=== PATIENT | female | born 1990 | race American Indian/Alaskan Native ===

== ENCOUNTER 2016-06-29 15:17 | Outpatient (CLI) | payer MEDICAID ==
[2016-06-29] MEDS ORDERED: LACTATED RINGERS 500 ML IV ONE (16:04)
[2016-06-29] MEDS ORDERED: LACTATED RINGERS 1,000 ML ONE ×2 (16:27→17:25)
[2016-06-29] MEDS ORDERED: ROCEPHIN/NS 1 GM/50 ML 1 GM/50 ML BAG IV ONE (17:22)
[2016-06-29 17:40] LABS: Bilirubin,Urine NEG (Negative); Blood,Urine NEG (Negative); Ketones,Urine TR mg/dL (Negative); Leukocyte Esterase,Urine TR (Negative); Mucus,Urine 3+ /HPF; Nitrite,Urine NEG (Negative); Protein,Urine <15 mg/dL mg/dL (Negative)
[2016-06-29 18:44] VITALS: BP 94/53
== END 2016-06-29 19:15 | disposition home or self-care (01) ==
LOC: TRG 15:17
PROVIDERS: ATTEND Obstetrics & Gynecology
DX: O47.03 False labor before 37 completed weeks of gestation, third trimester (principal); Z3A.29 29 weeks gestation of pregnancy
CPT/HCPCS: 59025; 81001; 96360; 96365; J0696; J7120

== ENCOUNTER 2016-08-03 13:22 | Outpatient (CLI) | payer MEDICAID ==
[2016-08-03 13:57] VITALS: BP 91/51
[2016-08-03] MEDS ORDERED: LACTATED RINGERS 500 ML IV ONE (13:58)
[2016-08-03 14:32] LABS: Bilirubin,Urine NEG (Negative); Blood,Urine NEG (Negative); Ketones,Urine NEG (Negative); Leukocyte Esterase,Urine NEG (Negative); Mucus,Urine FEW /HPF; Nitrite,Urine NEG (Negative); Protein,Urine <15 mg/dL mg/dL (Negative)
--- NOTE | 2016-08-04 10:26 | Ultrasound Report ---
BIOPHYSICAL PROFILE: 2 - breathing movements 2 - movements 2 - posture and tone 2 - Qualitative amniotic fluid volume A - TOTAL SCORE OF POSSIBLE 8 Heart Rate (bpm) 152 Gestation: Single Position: Breech Amniotic Fluid: SANDRA = 9.8 cm Heart Rate: 145 BPM Average gestational age 33 weeks.
== END 2016-08-03 15:20 | disposition home or self-care (01) ==
LOC: TRG 13:22
PROVIDERS: ATTEND Obstetrics & Gynecology
DX: O32.1XX0 Maternal care for breech presentation, not applicable or unspecified (principal); Z3A.33 33 weeks gestation of pregnancy
CPT/HCPCS: 76815; 76819; 81001; J7120

== ENCOUNTER 2016-08-24 20:16 | Outpatient (CLI) | payer MEDICAID ==
[2016-08-24 20:42] VITALS: BP 97/54
[2016-08-24] MEDS ORDERED: LACTATED RINGERS 500 ML IV ONE (21:53)
== END 2016-08-24 23:50 | disposition home or self-care (01) ==
LOC: TRG 20:16
PROVIDERS: ATTEND Obstetrics & Gynecology
DX: O47.03 False labor before 37 completed weeks of gestation, third trimester (principal); Z3A.36 36 weeks gestation of pregnancy
CPT/HCPCS: 59025

== ENCOUNTER 2016-08-26 05:41 | Inpatient (IN) | payer MEDICAID ==
[2016-08-26] MEDS ORDERED: LACTATED RINGERS 500 ML IV ONE (05:57)
[2016-08-26] MEDS ORDERED: LACTATED RINGERS 1,000 ML ONE ×2 (06:03→07:40)
[2016-08-26] MEDS ORDERED: XYLOCAINE 2% INFILTRATI ONE (10:21)
[2016-08-26] MEDS ORDERED: ePHEDrine SULFATE IV PRN ×2 (10:21→10:56)
[2016-08-26] MEDS ORDERED: BRETHINE SUB-Q PRN (10:21)
[2016-08-26] MEDS ORDERED: SUBLIMAZE IV PRN (10:21)
[2016-08-26] MEDS ORDERED: BRETHINE IVP PRN (10:21)
[2016-08-26] MEDS ORDERED: MINERAL OIL PO PRN (10:21)
[2016-08-26 10:45] LABS: Hematocrit 26.7 % (30.3-42.9); Hemoglobin 8.5 gm/dl (10.1-14.3); Mean Corpuscular HGB Conc 32 % (30-34); Mean Corpuscular Volume 75 fl (79-97); Platelet Count 245 K/mm3 (140-440); Red Blood Count 3.55 M/mm3 (3.65-5.03); Red Cell Distribution Width 16.1 % (13.2-15.2); White Blood Count 12.3 K/mm3 (4.5-11.0)
[2016-08-26 10:53] LABS: Mean Corpuscular Hemoglobin 24 pg (28-32)
--- NOTE | 2016-08-26 10:54 | History and Physical Report ---
History of Present Illness Date of examination: 08/26/16 Date of admission: 08/26/16 05:42 Chief complaint: C/O contractions this am History of present illness: now 36. 2 weeks presents to labor and delivery with c/o of contractions and hx of IUGR being followed by [facility]. BPP 10/11 today with equivocal NST. care at [facility] since 7 weeks gestation. HX of for IUGR and NRFHR in 2013.Baby had trisomy 18 at one year of life. First vaginal at 41 weeks. GBS negative. Past History Past Medical History: no pertinent history Past Surgical History: section Family/Genetic History: diabetes, heart disease, hypertension, stroke Social history: no significant social history - Obstetrical History Expected Date of Delivery: 09/21/16 Actual Gestation: 36 Week(s) 2 Day(s) : 3 Para: 2 Number of Living Children: 1 Medications and Allergies Allergies Allergy/AdvReac Type Severity Reaction Status Date / Time No Known Allergies Allergy Verified 06/16/15 15:06 Home Medications Medication Instructions Recorded Confirmed Last Taken Type Meclizine [Antivert] 25 mg PO TID PRN #20 tablet 06/16/15 Unknown Rx metroNIDAZOLE [Flagyl] 500 mg PO Q12HR #4 tab 01/22/16 Unknown Rx Active Meds: Active Medications Ephedrine Sulfate (Ephedrine Sulfate) 10 mg IV Q2M PRN PRN Reason: Hypotension Stop: 08/26/16 10:26 Fentanyl (Sublimaze) 100 mcg IV Q2H PRN PRN Reason: Labor Pain Lactated Ringer's (Lactated Ringers) 1,000 mls @ 125 mls/hr IV DIRECT MELVIN Oxytocin/Sodium Chloride (Pitocin/Ns 20 Unit/1000ml Drip) 20 units in 1,000 mls @ 125 mls/hr IV DIRECT MELVIN Oxytocin/Sodium Chloride (Pitocin/Ns 30 Unit/500ml) 30 units in 500 mls @ 2 mls /hr IV TITR MELVIN PRN Reason: Protocol Lidocaine (Xylocaine 2%) 20 ml INFILTRATI ONCE ONE Stop: 08/26/16 10:22 Mineral Oil (Mineral Oil) 30 ml PO QHS PRN PRN Reason: Constipation Terbutaline Sulfate (Brethine) 0.25 mg SUB-Q ONCE PRN PRN Reason: Hyperstimulation/Hypertonicity Stop: 08/26/16 10:22 Terbutaline Sulfate (Brethine) 0.25 mg IVP ONCE PRN PRN Reason: Hyperstimulation/Hypertonicity Stop: 08/26/16 10:22 Review of Systems All systems: negative - Vital Signs Vital signs: Vital Signs Pulse Pulse Ox 90 97 08/26/16 05:57 08/26/16 05:57 Temp Pulse Resp BP Pulse Ox 98.0 F 86 18 100/50 98 08/26/16 06:02 08/26/16 08:12 08/26/16 06:02 08/26/16 06:02 08/26/16 08:12 - Physical Exam Breasts: Positive: deferred Cardiovascular: Regular rate Lungs: Positive: Clear to auscultation Abdomen: Positive: soft Vulva: both: normal Vagina: Positive: normal moisture Uterus: Positive: enlarged Anus/Rectum: Positive: normal perianal skin Extremities: Positive: normal Deep Tendon Reflex Grade: Normal +2 - Obstetrical FHR: category 1 Uterine Contraction Monitor Mode: External Cervical Dilatation: 4 Cervical Effacement Percentage: 70 station: -1 Uterine Contraction Pattern: Irregular Uterine Contraction Intensity: Mild Results All other labs normal. Assessment and Plan A:IUP @ 36.2 weeks, IUGR P: Discussed with Dr. Moreno will augment and attempt delivery
[2016-08-26] MEDS ORDERED: NARCAN 2 MG/2 ML IV PRN (10:56)
--- NOTE | 2016-08-26 10:56 | Anesthesia Consultation ---
Anesthesia Consult and Med Hx Date of service: 08/26/16 - Airway Anesthetic Teeth Evaluation: Good ROM Head & Neck: Adequate Mental/Hyoid Distance: Adequate Mallampati Class: Class II Intubation Access Assessment: Probably Good - Pulmonary Exam CTA: Yes - Pre-Operative Health Status ASA Pre-Surgery Classification: ASA2 Proposed Anesthetic Plan: Epidural - Pulmonary Hx Asthma: No COPD: No Hx Pneumonia: No - Cardiovascular System Hx Hypertension: No - Central Nervous System Hx Seizures: No Hx Psychiatric Problems: No - Endocrine Hx Renal Disease: No Hx End Stage Renal Disease: No Hx Hypothyroidism: No Hx Hyperthyroidism: No - Hematic Hx Anemia: No Hx Sickle Cell Disease: No - Other Systems Hx Alcohol Use: No
[2016-08-26] MEDS ORDERED: LACTATED RINGERS 1,000 ML IV SCH (11:00)
[2016-08-26] MEDS ORDERED: fentaNYL-BUPIV 2 MCG/ML-0.125% 200 MCG/100 ML BAG EPIDURAL SCH (11:00)
[2016-08-26] MEDS ORDERED: PITOCin/NS 20 UNIT/1000ML DRIP 20 UNITS/1,000 ML BAG IV SCH (11:00)
[2016-08-26] MEDS ORDERED: PITOCin/NS 30 UNIT/500ML 30 UNITS/500 ML BAG IV SCH (11:00)
--- NOTE | 2016-08-26 11:53 | Ultrasound Report ---
ULTRASOUND BIOPHYSICAL PROFILE: History: well being Technique: Transabdominal ultrasound with Doppler interrogation. 2 - breathing movements 2 - movements 2 - posture and tone 2 - Qualitative amniotic fluid volume 8 - TOTAL SCORE OF POSSIBLE 8 Heart Rate (bpm) 156
--- NOTE | 2016-08-26 12:39 | Event Note ---
Date: 08/26/16 O: VE /-1, arom clear fluid, IUPC and FSE placed, Pitocin at 6mu,Cat 2 tracing, min variability A: Augmentation of labor @ 36.2 weeks IUGR P; Expect
--- NOTE | 2016-08-26 14:20 | Event Note ---
Date: 08/26/16 O: VE /-1, pit at 12 mu, Cat 2 tracing, minimal variabilty A: Augmentation of labor at 36.2 weeks P: EXpect
--- NOTE | 2016-08-26 17:31 | Procedure Note ---
OB Delivery Note - Delivery Date of Delivery: 08/26/16 Surgeon: PENNIE ANDRADE Estimated blood loss: 200cc - Vaginal Delivery presentation: vertex Delivery position: OA Intrapartum events: decreased FHT variability, other(please specify) (IUGR) Delivery augmentation: rupture of membranes, pitocin Delivery monitor: external FHT, external uterine, internal uterine Route of delivery: Delivery placenta: spontaneous Episiotomy: none Delivery laceration: none Anesthesia: epidural Delivery comments: of a 36.2 week female 5# 4 oz on 08/26/16 @1713 over intact perineum. Cord over the shoulder reduced. 8/9. Placenta delivered 3 VCI. FF2 U, mother and baby doing well. - Infant A at 1 minute: 8 at 5 minutes: 9 Infant Gender: Female (5 # 4oz)
[2016-08-26] MEDS ORDERED: MILK OF MAGNESIA PO PRN (17:34)
[2016-08-26] MEDS ORDERED: LANSINOH TP PRN (17:34)
[2016-08-26] MEDS ORDERED: TUCKS PAD TP PRN (17:34)
[2016-08-26] MEDS ORDERED: DERMOPLAST TP PRN (17:34)
[2016-08-26] MEDS ORDERED: DULCOLAX PR PRN (17:34)
[2016-08-26] MEDS ORDERED: TYLENOL PO PRN (17:34)
[2016-08-26] MEDS ORDERED: PHENERGAN PR PRN (17:34)
[2016-08-26] MEDS ORDERED: BENADRYL PO PRN (17:34)
[2016-08-26] MEDS ORDERED: ZOFRAN IV PRN (17:34)
[2016-08-26] MEDS ORDERED: SODIUM CHLORIDE FLUSH SYRINGE 10 ML IV SCH (18:00)
[2016-08-26] MEDS: NORCO 5/325 PO PRN (18:25)
[2016-08-26] MEDS: MOTRIN PO SCH (20:47)
[2016-08-27] MEDS: NORCO 5/325 PO PRN (00:56)
[2016-08-27] MEDS: MOTRIN PO SCH ×3 (05:18→23:52)
[2016-08-27 05:51] LABS: Hematocrit 27.2 % (30.3-42.9); Hemoglobin 8.5 gm/dl (10.1-14.3)
--- NOTE | 2016-08-27 09:22 | Progress Note ---
Assessment and Plan A: PPD 1 VSS Asymptomatic anemia in NICU P: Routine care Infed for anemia Depo for contraception DC tomorrow Subjective - Subjective Date of service: 08/27/16 Principal diagnosis: PPD1 Interval history: now 36. 2 weeks presented to labor and delivery with c/o of contractions and hx of IUGR being followed by [facility]. BPP 10/11 with equivocal NST. care at [facility] since 7 weeks gestation. HX of for IUGR and NRFHR in 2013.Baby had trisomy 18 at one year of life. First vaginal at 41 weeks. GBS negative. Delivered 08/26/16 at 1715. Baby to NICU. Patient reports: appetite normal, voiding normally, pain well controlled, ambulating normally [place]: in NICU Objective - Vital Signs Latest vital signs: Vital Signs Temp Pulse Pulse Resp BP BP Pulse Ox 08/27/16 08:05 98 F 67 18 91/54 08/27/16 05:15 97.7 F 62 18 100/61 08/27/16 00:40 98.3 F 76 18 92/58 08/26/16 20:00 97.4 F L 68 18 97/58 08/26/16 18:59 96.8 F L 18 129/70 08/26/16 18:54 67 129/70 08/26/16 18:39 70 120/73 08/26/16 18:23 82 112/71 08/26/16 18:09 75 109/66 08/26/16 17:54 78 92/64 08/26/16 17:38 75 105/60 08/26/16 17:30 16 08/26/16 17:24 91 H 98/60 08/26/16 17:18 89 101/61 08/26/16 17:03 95 H 100 08/26/16 16:58 86 99 08/26/16 16:55 85 102/65 08/26/16 16:53 97 H 100 08/26/16 16:48 83 100 08/26/16 16:43 89 99 08/26/16 16:39 78 99/63 08/26/16 16:38 77 99 08/26/16 16:33 89 97 08/26/16 16:30 98.3 F 16 08/26/16 16:28 78 97 08/26/16 16:23 79 98/57 97 08/26/16 16:18 97 H 98 08/26/16 16:13 78 97 08/26/16 16:08 78 100/57 98 08/26/16 16:03 89 98 08/26/16 15:58 82 99 08/26/16 15:54 78 100/60 08/26/16 15:53 86 99 08/26/16 15:48 76 99 08/26/16 15:43 88 98 08/26/16 15:38 78 94/53 99 08/26/16 15:33 78 98 08/26/16 15:28 79 98 08/26/16 15:23 71 92/54 99 08/26/16 15:18 72 97 08/26/16 15:13 74 98 08/26/16 15:09 81 94/50 08/26/16 15:08 79 98 08/26/16 15:03 87 98 08/26/16 14:58 76 98 08/26/16 14:54 74 92/50 08/26/16 14:53 76 98 08/26/16 14:48 79 98 08/26/16 14:43 74 98 08/26/16 14:39 86 97/58 08/26/16 14:38 89 98 08/26/16 14:33 80 98 08/26/16 14:28 85 99 08/26/16 14:24 86 112/63 08/26/16 14:23 86 98 08/26/16 14:18 78 99 08/26/16 14:13 77 99 08/26/16 14:09 81 101/61 08/26/16 14:08 84 99 08/26/16 14:03 72 99 08/26/16 13:58 87 98 08/26/16 13:54 76 99/67 08/26/16 13:53 74 98 08/26/16 13:48 72 99 08/26/16 13:43 92 H 98 08/26/16 13:39 75 98/61 08/26/16 13:38 74 99 08/26/16 13:33 84 97 08/26/16 13:28 80 99 08/26/16 13:24 80 108/62 08/26/16 13:23 80 98 08/26/16 13:18 84 98 08/26/16 13:13 80 99 08/26/16 13:09 79 112/67 08/26/16 13:08 77 99 08/26/16 13:03 79 98 08/26/16 12:58 74 99 08/26/16 12:54 83 110/69 08/26/16 12:53 85 99 08/26/16 12:48 84 98 08/26/16 12:43 76 99 08/26/16 12:39 77 99/60 08/26/16 12:38 84 99 08/26/16 12:33 83 99 08/26/16 12:28 79 98 08/26/16 12:23 74 99/58 99 08/26/16 12:18 92 H 99 08/26/16 12:13 82 99 08/26/16 12:08 80 89/52 98 08/26/16 12:03 94 H 98 08/26/16 11:58 85 99 08/26/16 11:53 80 95/50 99 08/26/16 11:48 88 99 08/26/16 11:43 88 99 08/26/16 11:38 98 F 87 16 104/56 98 08/26/16 11:33 96 H 98 08/26/16 11:28 100 H 99 08/26/16 11:24 89 103/58 80 L 08/26/16 11:23 88 99 08/26/16 11:21 93 H 104/56 08/26/16 11:18 86 113/61 99 08/26/16 11:16 86 94/57 08/26/16 11:13 92 H 92/59 99 08/26/16 11:09 96 H 101/65 08/26/16 11:08 93 H 100 08/26/16 11:03 88 99 08/26/16 10:58 86 99 08/26/16 10:53 86 98 08/26/16 10:48 88 98 Intake and Output 08/26/16 08/27/16 08/27/16 22:59 06:59 14:59 Intake Total 375 240 240 Output Total 800 1900 Balance -425 1660 240 Intake: IV 375 PITOCin/NS 20 UNIT/1000ML 375 DRIP 20 units In 1,000 ml @ 125 mls/hr IV DIRECT MELVIN Rx#:[id number] Oral 240 Intake, Free Water 240 Output: Urine 800 1900 Indwelling Catheter 800 Void 1900 Other: Total, Intake Amount 240 Total, Output Amount 800 600 # Voids Void 1 Estimated Blood Loss 200 - Exam Cardiovascular: Present: Regular rate Lungs: Present: Normal air movement Vulva: both: normal (scant lochia) Uterus: Present: fundal height below umbilicus Extremities: Present: normal Deep Tendon Reflex Grade: Normal +2 - Labs Labs: Abnormal lab results 08/26/16 08/27/16 Range/Units 10:25 05:08 WBC 12.3 H (4.5-11.0) K/mm3 RBC 3.55 L (3.65-5.03) M/mm3 Hgb 8.5 L 8.5 L (10.1-14.3) gm/dl Hct 26.7 L 27.2 L (30.3-42.9) % MCV 75 L (79-97) fl MCH 24 L (28-32) pg RDW 16.1 H (13.2-15.2) % - Allied health notes Allied health notes reviewed: nursing
--- NOTE | 2016-08-27 09:25 | Discharge Summary ---
Providers - Providers Date of Admission: 08/26/16 05:42 Date of discharge: 08/28/16 Attending physician: DOLORES STEEL MD Primary care physician: DOLORES STEEL MD Hospitalization Reason for admission: active labor, IUP - Delivery: Laceration: none Other procedures: none complications: none Discharge diagnosis: delivery baby: female Hospital course: uneventful Condition at discharge: Good Disposition: DISCHARGED TO HOME OR SELFCARE Plan - Provider Discharge Summary Activity: routine, no sex for 6 weeks, no heavy lifting 4 weeks, no strenuous exercise Diet: routine Instructions: routine Additional instructions: [] Smoking cessation referral if applicable(refer to patient education folder for contact #) [] Refer to [facility] Book[facility] Call your doctor immediately for: * Fever > 100.5 * Heavy vaginal bleeding ( >1 pad per hour) * Severe persistent headache * Shortness of breath * Reddened, hot, painful area to leg or breast * Drainage or odor from incision. * Keep incision clean and dry at all times and follow doctor's instructions regarding bathing/showering - Follow up plan Follow up: [facility] [Provider Group] - 6 Weeks
[2016-08-27] MEDS ORDERED: INFED IM ONE (10:00)
[2016-08-27] MEDS ORDERED: DEPO-PROVERA (CONTRACEPTION) IM ONE (10:00)
--- NOTE | 2016-08-27 12:26 | Progress Note ---
Subjective Date of service: 08/27/16 Principal diagnosis: PPD1 Interval history: 1st day after normal vaginal delivery Patient is in the bed, comfortable. Pain is well controlled with pain meds. Ambulated well. No residual neurological deficit. No anesthesia complications Objective - Constitutional Vitals: Vital Signs - 12hr 08/27/16 08/27/16 08/27/16 00:40 05:15 08:05 Temperature 98.3 F 97.7 F 98 F Pulse Rate [ 76 62 67 From Monitor] Respiratory 18 18 18 Rate Blood Pressure 92/58 100/61 91/54 [Left Arm] - Labs CBC & Chem 7: 08/27/16 05:08 Labs: Abnormal lab results 08/27/16 Range/Units 05:08 Hgb 8.5 L (10.1-14.3) gm/dl Hct 27.2 L (30.3-42.9) %
[2016-08-28] MEDS: MOTRIN PO SCH (05:57)
[2016-08-28 16:29] VITALS: BP 97/58
== END 2016-08-28 15:15 | disposition home or self-care (01) | DRG 775 ==
LOC: TRG 05:41 → LD 05:42 → TRG 05:53 → OB 18:00 → LD 18:02 → OB 19:58
PROVIDERS: ADMIT Obstetrics & Gynecology; ATTEND Obstetrics & Gynecology
PROC: 10E0XZZ Delivery of Products of Conception, External Approach (ICD-10-PCS; principal; 2016-08-26)
PROC: 3E0S3CZ (ICD-10-PCS; 2016-08-26)
PROC: 00HU33Z Insertion of Infusion Device into Spinal Canal, Percutaneous Approach (ICD-10-PCS; 2016-08-26)
DX: O76 Abnormality in fetal heart rate and rhythm complicating labor and delivery (principal); N85.8 Other specified noninflammatory disorders of uterus; Z3A.36 36 weeks gestation of pregnancy; Z37.0 Single live birth; Z83.3 Family history of diabetes mellitus; Z82.3 Family history of stroke; Z82.49 Family history of ischemic heart disease and other diseases of the circulatory system; O36.5930 Maternal care for other known or suspected poor fetal growth, third trimester, not applicable or unspecified; D64.9 Anemia, unspecified; O60.14X0 Preterm labor third trimester with preterm delivery third trimester, not applicable or unspecified; O99.013 Anemia complicating pregnancy, third trimester
CPT/HCPCS: 36415; 76819; 85014; 85018; 85027; 86850; 86900; 86901; 99211; G0463; J1050; J1750; J2590; J7120

== ENCOUNTER 2017-02-10 10:21 | Emergency (ER) | payer SELFPAY ==
[2017-02-10] MEDS: TETRACAINE 0.5% OU ONE (12:00)
[2017-02-10] MEDS ORDERED: UNASYN 3 GM in NACL 0.9% 50 ML IV ONE (12:21)
[2017-02-10] MEDS ORDERED: TETRACAINE 0.5% ONE (12:38)
[2017-02-10] MEDS ORDERED: BSS ONE (12:38)
[2017-02-10] MEDS: FUL-GLO OP ONE (12:52)
[2017-02-10] MEDS: BSS OU ONE (12:52)
[2017-02-10] MEDS: TORADOL IM ONE (14:00)
--- NOTE | 2017-02-10 14:38 | Emergency Department Report ---
ED Eye Problem HPI - General Chief complaint: Eye Problems Stated complaint: EYE REDNESS Source: patient Mode of arrival: Ambulatory Limitations: No Limitations - History of Present Illness Initial comments: 26 y/o F presents with a red R eye for the past 2 days. Pt denies any known trauma or foreign body to the eye. She admits to her eyes being a bit more itchy 2 days ago and states that she was rubbing them often and does not recall if she had scratched her cornea. Pt states that this is the thrid time this has happened to her, her last episode being about 1 month ago in which she was treated with cromolyn and polymyxin eye drops. Pt states that she had some left over from last time, but states that it has not helped with the symptoms. Pt admits to some blurried vision, mild vision loss, and headache associated with the photophobia. She also admits to pus and oozing of the affected eye. She admits that she is a glasses wearer. No known hx of eye disorders. She denies any fever, chills, chest pain, SOB, nausea, vomiting. She also denies any pain around the R eye at the eyelid, no redness, or swelling per patient. NKDA. PATEL chief complaint: eye pain, eye redness, vision change -: days(s) (2) Onset Description: sudden Location: right eye Place: home If Injury: none Eye Symptoms: burning, redness, pain, foreign body sensation, itching, decreased vision, blurry vision, photophobia Severity: severe Severity scale (0 -10): 9 If Pain, Quality: sharp Consistency: constant Context: other (had a simialr occurence about 1 month ago) Associated Symptoms: headache. denies: neck pain, nausea/vomiting, cough, rhinorrhea, fever, shortness of breath Treatments Prior to Arrival: other (tried left over eye drops polymyxin B. solution and Cromolyn) - Related Data Previous Rx's Medication Instructions Recorded Last Taken Type Meclizine [Antivert] 25 mg PO TID PRN #20 tablet 06/16/15 Unknown Rx metroNIDAZOLE [Flagyl] 500 mg PO Q12HR #4 tab 01/22/16 Unknown Rx Tobramycin/Dexamethasone [Tobradex 10 ml OP Q4-6H #1 bottle 02/10/17 Unknown Rx Eye Drops] Allergies Allergy/AdvReac Type Severity Reaction Status Date / Time No Known Allergies Allergy Verified 06/16/15 15:06 ED Review of Systems ROS: Stated complaint: EYE REDNESS Other details as noted in HPI Constitutional: denies: chills, fever Eyes: eye pain, eye discharge, vision change ENT: denies: ear pain, throat pain Respiratory: denies: cough, shortness of breath, wheezing Cardiovascular: denies: chest pain, palpitations Gastrointestinal: denies: abdominal pain, nausea, diarrhea Genitourinary: denies: urgency, dysuria, discharge Musculoskeletal: denies: back pain, joint swelling, arthralgia Skin: other (no swelling or redness noted around the eye) Neurological: headache (associated with the light, consistent with photophobia) Psychiatric: denies: anxiety, depression ED Past Medical Hx - Past Medical History Hx Hypertension: No Hx Congestive Heart Failure: No Hx Diabetes: No Hx Deep Vein Thrombosis: No Hx Renal Disease: No Hx Sickle Cell Disease: No Hx Seizures: No Hx Asthma: No Hx COPD: No Hx HIV: No Additional medical history: Vaginal delivery x 1 - Surgical History Additional Surgical History: - Social History Smoking Status: Never Smoker - Medications Home Medications: Home Medications Medication Instructions Recorded Confirmed Last Taken Type Meclizine [Antivert] 25 mg PO TID PRN #20 tablet 06/16/15 Unknown Rx metroNIDAZOLE [Flagyl] 500 mg PO Q12HR #4 tab 01/22/16 Unknown Rx Tobramycin/Dexamethasone [Tobradex 10 ml OP Q4-6H #1 bottle 02/10/17 Unknown Rx Eye Drops] ED Physical Exam - General Limitations: No Limitations General appearance: alert, in no apparent distress - Head Head exam: Present: atraumatic, normocephalic - Eye Eye exam: Present: PERRL, EOMI, other (inversion of the eyelid was conducted, no evidence of foreign body, there was mild draiange noted of the affected eye) Pupils: Present: normal accommodation - Expanded Eye Exam Expanded Eyelids: Normal Inspection: Right (there was redness of the conjunctiva of the R eye, no erythema or swelling noted around the eye) Pupils: Regular, Round: Bilateral, Reactive: Bilateral Sclera/Conjunctival: Normal Inspection: Right (red), Injection: Right, Foreign Body: Right (no foreign bodies were visualized, fluroscien staining showed uptake was noted in the R cornea- consistent with an abrasion) Visual acuity (R) = 20/: 200 Visual acuity (L) = 20/: 25 With correction: No IOP (R) in mmH (tonometry) - ENT ENT exam: Present: normal exam - Neck Neck exam: Present: normal inspection, full ROM - Respiratory Respiratory exam: Present: normal lung sounds bilaterally. Absent: respiratory distress - Cardiovascular Cardiovascular Exam: Present: regular rate, normal rhythm. Absent: systolic murmur, diastolic murmur, rubs, gallop - Neurological Exam Neurological exam: Present: alert, oriented X3, normal gait - Psychiatric Psychiatric exam: Present: normal affect, normal mood - Skin Skin exam: Present: warm, dry, intact, normal color. Absent: rash ED Course Vital Signs 02/10/17 02/10/17 02/10/17 10:47 14:20 14:30 Temperature 98.7 F Pulse Rate 95 H 90 Respiratory 16 16 16 Rate Blood Pressure 116/75 Blood Pressure 130/86 [Left] O2 Sat by Pulse 100 99 Oximetry ED Medical Decision Making - Medical Decision Making Tonometry 16 average, no increased IOP. Visual acuity in the R eye was 20/200 and L eye was 20/25 without glasses. I conducted a fluorsecin with the blue light and tetraicaine drops in the ED which was indicative of uptake and consistent with a corneal abrasion. Affected eye was flushed numerous times prior to discharge. I did no visualize any foreign body in the affected eye. Pt was given a shot or toradol 30 mg here in the ED for the pain. She was discharged with tobradex eye drops this will help with the pain along with any possible infection. Pt was told to follow-up with opthamology [facility]. She reported verbal understanding, the improtanct of precise follow-up was urged to the patient. Pt was discharged in stable condition, alert and oriented, and in no respiratory distress. Spoke with patient via phone on February 12 around 12 PM: she states that she has noticed improvement of her symptoms and vision with the eyedrops given to her during ED visit, she states that she will still follow-up with opthamology [facility]. Critical care attestation.: If time is entered above; I have spent that time in minutes in the direct care of this critically ill patient, excluding procedure time. ED Disposition Clinical Impression: Pain, eye, right Corneal abrasion, right Qualifiers: Encounter type: initial encounter Qualified Code(s): S05.01XA - Injury of conjunctiva and corneal abrasion without foreign body, right eye, initial encounter Disposition: TO HOME OR SELFCARE Is pt being admited?: No Does the pt Need Aspirin: No Condition: Stable Instructions: Corneal Abrasion (ED), Eye Pain (ED) Additional Instructions: Please apply eye drops for the pain and possible infection. Please apply 1-2 drops every 4-6 hours. Please follow-up with opthamology tomorrow. Please follow up with PCP with 3-5 days. Please return to the ER immediately with any acute worsening of symptoms, such as vision loss, increased pain, fever. Prescriptions: Tobramycin/Dexamethasone [Tobradex Eye Drops] 10 ml OP Q4-6H #1 bottle Referrals: [facility] [Outside] - 3-5 Days [facility] [Outside] - 3-5 Days TARIQ LOW MD [Staff Physician] - 3-5 Days [facility], [Primary Care Provider] - 3-5 Days JOSELITO RORDIGUEZ MD [Staff Physician] - 3-5 Days Forms: Work/School Release Form(ED)
[2017-02-10 14:46] VITALS: BP 130/86
== END 2017-02-10 14:20 | disposition home or self-care (01) ==
LOC: ED 10:21
DX: S05.01XA Injury of conjunctiva and corneal abrasion without foreign body, right eye, initial encounter (principal); H57.11 Ocular pain, right eye; X58.XXXA Exposure to other specified factors, initial encounter; Y93.9 Activity, unspecified; Y92.9 Unspecified place or not applicable; Y99.9 Unspecified external cause status
CPT/HCPCS: 81025; 96372; 99283; J1885